=== PATIENT | male | born 1935 | race Caucasian/White ===

== ENCOUNTER 2018-06-08 09:35 | Emergency (ER) | payer OTHER, MEDICARE ==
--- NOTE | 2018-06-08 09:55 | ER Document Report ---
HPI - HPI Pain Level: 1 Notes: Patient is an 89-year-old male with a history of COPD and cardiac history who presents to the emergency department complaining of dry nonproductive cough that began yesterday morning. Patient states that his was diagnosed with pneumonia recently and he was sent by the [place] [facility] for a chest x-ray. Patient states that he also began having nasal congestion and discharge at that time. He is eating and drinking without difficulty. He is urinating normally and having normal bowel movements. Denies any headache, fever, neck pain, URI, sore throat, chest pain, palpitations, syncope, shortness of breath, wheeze, dyspnea, abdominal pain, nausea/vomiting/diarrhea, urinary retention, dysuria, hematuria, or rash. - ROS Systems Reviewed and Negative: Yes All other systems reviewed and negative - DERM Skin Color: Normal Past Medical History - Social History Smoking Status: Former Smoker Family History: Reviewed & Not Pertinent Patient has suicidal ideation: No Patient has homicidal ideation: No Renal/ Medical History: Denies: Hx Peritoneal Dialysis Vertical Provider Document - CONSTITUTIONAL Agree With Documented VS: Yes Notes: PHYSICAL EXAMINATION: GENERAL: Well-appearing, well-nourished and in no acute distress. HEAD: Atraumatic, normocephalic. EYES: Pupils equal round and reactive to light, extraocular movements intact, sclera anicteric, conjunctiva are normal. ENT: Nares patent and with clear discharge. oropharynx clear without exudates. No tonsilar hypertrophy or erythema. Moist mucous membranes. NECK: Normal range of motion, supple without lymphadenopathy LUNGS: Breath sounds clear to auscultation bilaterally and equal. No wheezes rales or rhonchi. HEART: Regular rate and rhythm without murmurs, rubs, gallops. ABDOMEN: Soft, nontender, nondistended abdomen. No guarding, no rebound. No masses appreciated. Normal bowel sounds present. No CVA tenderness bilaterally. Musculoskeletal: FROM to passive/active. Strength 5+/5. Jakub neg. No asymmetry to LE's. Extremities: No cyanosis, clubbing, or edema b/l. Peripheral pulses 2+. Capillary refill less than 3 seconds. NEUROLOGICAL: Normal speech, normal gait. PSYCH: Normal mood, normal affect. SKIN: Warm, Dry, normal turgor, no rashes or lesions noted. - INFECTION CONTROL TRAVEL OUTSIDE OF THE [place] IN LAST 30 DAYS: No Course - Re-evaluation Re-evalutation: 06/08/18 Patient is an afebrile, well-hydrated, 89-year-old male who presents to the emergency department with an acute URI, suspect viral. Vitals are acceptable without significant tachycardia, tachypnea, or hypoxia. PE is otherwise unremarkable. Patient is nontoxic-appearing and is tolerating p.o. without difficulty. Chest x-ray unremarkable. No further labs or imaging warranted. Patient does not have any chest pain, shortness of breath, or dyspnea on exertion. He was at his [place] [facility] provider today who wanted him here for an x- ray for possible pneumonia. Based on patient's symptomatology and clinical exam I have low suspicion for any ACS, PE, pneumothorax, pericarditis, dissection, respiratory compromise, severe dehydration, sepsis, meningitis, or other systemic emergent condition at this time. Patient is aware that his condition can change from initial presentation and he needs to monitor symptoms closely and seek medical attention for any acute changes. Recommend conservative measures for symptoms. Recheck with your PCM in 2-3 days. Return to the ED with any worsening/concerning symptoms otherwise as reviewed in discharge. Patient is in agreement. - Vital Signs Vital signs: Temp Pulse Resp BP Pulse Ox 97.8 F 69 16 124/69 96 06/08/18 09:46 06/08/18 09:46 06/08/18 09:46 06/08/18 09:46 06/08/18 09:46 Discharge - Discharge Clinical Impression: Acute URI Condition: Stable Disposition: HOME, SELF-CARE Instructions: Upper Respiratory Illness ([facility]) Additional Instructions: Maintain adequate fluid intake Take meds as directed tylenol/ibuprofen as needed over the counter cold medication as needed for symptoms Humidified air may help Wash your hands regularly Wear a mask when coughing F/u: with your PCM in 2-3 days for a recheck Return to the ED with any fever, worsening pain, chest pain, palpitations, syncope, worsening HALE, neck pain/stiffness, shortness of breath, wheezing, drooling, trouble swallowing/breathing, abdominal pain, n/v/d, rash, or worsening/concerning symptoms otherwise. Prescriptions: Benzonatate [Tessalon Perle 100 mg Capsule] 100 mg PO Q8HP PRN #15 cap PRN Reason: Referrals: [facility] [Provider Group] - Follow up as needed
--- NOTE | 2018-06-08 10:47 | RADIOLOGY REPORT (SQ) ---
EXAM DESCRIPTION: CHEST 2 VIEWS COMPLETED DATE/TIME: 06/08/2018 10:26 am REASON FOR STUDY: cough COMPARISON: None. EXAM PARAMETERS: NUMBER OF VIEWS: two views TECHNIQUE: Digital Frontal and Lateral radiographic views of the chest acquired. RADIATION DOSE: NA LIMITATIONS: none FINDINGS: LUNGS AND PLEURA: No opacities, masses or pneumothorax. No pleural effusion. MEDIASTINUM AND HILAR STRUCTURES: No masses or contour abnormalities. HEART AND VASCULAR STRUCTURES: Heart normal size. No evidence for failure. BONES: No acute findings. HARDWARE: None in the chest. OTHER: No other significant finding. IMPRESSION: NO ACUTE RADIOGRAPHIC FINDING IN THE CHEST. TECHNICAL DOCUMENTATION: JOB ID: [id number] [employer]- All Rights Reserved Reading location - IP/workstation name: [email or web address]
[2018-06-08 11:12] VITALS: BP 112/74
== END 2018-06-08 11:12 | disposition home or self-care (01) ==
LOC: EDBD → ER 09:35
DX: J06.9 Acute upper respiratory infection, unspecified (principal); R05 Cough; R09.81 Nasal congestion; R09.89 Other specified symptoms and signs involving the circulatory and respiratory systems; Z87.891 Personal history of nicotine dependence
CPT/HCPCS: 71046; 99283

== ENCOUNTER 2018-09-05 10:21 | Emergency (ER) | payer OTHER, MEDICARE ==
[2018-09-05] MEDS ORDERED: MORPHINE SULFATE 10 MG/ML INJ IV ONE (11:27)
--- NOTE | 2018-09-05 11:27 | RADIOLOGY REPORT (SQ) ---
EXAM DESCRIPTION: KNEE RIGHT 2 VIEWS COMPLETED DATE/TIME: 09/05/2018 11:15 am REASON FOR STUDY: bed 17 r knee s/p fall +swelling +painful COMPARISON: None. NUMBER OF VIEWS: Four views. TECHNIQUE: AP, lateral, and both oblique radiographic images acquired of the right knee. LIMITATIONS: None. FINDINGS: MINERALIZATION: Normal. BONES: No acute fracture or dislocation. No worrisome bone lesions. JOINT: No effusion. SOFT TISSUES: Extensive soft tissue swelling over the anterior knee. OTHER: No other significant finding. IMPRESSION: No fracture or dislocation of the right knee. Extensive soft tissue swelling over the a nterior knee. TECHNICAL DOCUMENTATION: JOB ID: [id number] [employer]- All Rights Reserved Reading location - IP/workstation name: [email or web address]
--- NOTE | 2018-09-05 11:34 | ER Document Report ---
ED Extremity Problem, Lower - General Chief Complaint: Knee Injury Stated Complaint: LEG PAIN Time Seen by Provider: 09/05/18 10:58 Primary Care Provider: BARBIE GROSS DO [Primary Care Provider] - Follow up as needed TRAVEL OUTSIDE OF THE [place] IN LAST 30 DAYS: No - HPI Notes: Patient is a 82-year-old male that presents to the emergency department for chief complaint of right knee pain. Patient states he was walking to the bathroom and his right knee gave out on him. He fell forward landing on his right knee directly. He denies head injury or loss of consciousness. He states the knee has become increasingly swollen and painful since the fall. The pain is worse with any kind of movement. He states that he is now having some numbness in his right foot. Patient is on Plavix for history of coronary stenting x3. He denies surgery on this knee in the past. He denies other injuries during the fall. He did receive fentanyl by EMS prior to arrival and reports no improvement of his pain. Past Medical History: CAD Past Surgical History: Coronary stent x3 Social History: Denies drugs alcohol and tobacco, lives independently Family History: Reviewed and noncontributory for presenting illness Allergies: Reviewed, see documented allergy list. REVIEW OF SYSTEMS: CONSTITUTIONAL : No fever No chills No diaphoresis No recent illness EENT: No vision changes No congestion No sore throat CARDIOVASCULAR: No chest pain No palpitations RESPIRATORY: No shortness of breath No cough No difficulty breathing GASTROINTESTINAL: No abdominal pain No nausea No vomiting No diarrhea GENITOURINARY: No dysuria No hematuria No difficulty urinating MUSCULOSKELETAL: No back pain knee pain No arm pain SKIN: No rashes lesions LYMPHATIC: No swollen, enlarged glands. NEUROLOGICAL: No lightheadedness No headache No weakness No paresthesias PSYCHIATRIC: No anxiety No depression PHYSICAL EXAMINATION: Vital signs reviewed, nursing noted reviewed. GENERAL: Well-appearing, well-nourished and in no acute distress. HEAD: Atraumatic, normocephalic. EYES: Eyes appear normal, extraocular movements intact, sclera anicteric, co njunctiva are normal. ENT: nares patent, oropharynx clear without exudates. Moist mucous membranes. NECK: Normal range of motion, supple without lymphadenopathy LUNGS: Breath sounds clear to auscultation bilaterally and equal. No wheezes rales or rhonchi. HEART: Regular rate and rhythm without murmurs, +2/4 bilateral DP and PT pulses symmetric ABDOMEN: Soft, nontender, normoactive bowel sounds. No rebound, guarding, or rigidity. No masses appreciated. EXTREMITIES: Large amount of edema to right knee and distal right thigh, decreased range of motion of right knee in extension and flexion. Ecchymosis and abrasion to anterior right knee. Pelvis stable. Normal right ankle exam. No right hip tenderness. NEUROLOGICAL: Subjective paresthesias distal to right knee, moves all extremit ies spontaneously Motor intact on exam. PSYCH: Normal mood, normal affect. SKIN: Warm, Dry, normal turgor, right knee abrasion without bleeding - Related Data Allergies/Adverse Reactions: aspirin Allergy (Verified 06/22/18 11:52) codeine Allergy (Verified 06/22/18 11:52) iodine Allergy (Verified 06/22/18 11:52) Penicillins Allergy (Verified 06/22/18 11:52) Sulfa (Sulfonamide Antibiotics) Allergy (Verified 06/22/18 11:52) Past Medical History - Social History Smoking Status: Unknown if Ever Smoked Family History: CAD, COPD, Reviewed & Not Pertinent Patient has suicidal ideation: No Patient has homicidal ideation: No - Past Medical History Cardiac Medical History: Reports: Hx Coronary Artery Disease, Hx Heart Attack - x2, Hx Hypercholesterolemia, Hx Hypertension Pulmonary Medical History: Reports: Hx Bronchitis, Hx COPD, Hx Pneumonia Neurological Medical History: Reports: Hx Cerebrovascular Accident - tia Endocrine Medical History: Reports: Hx Diabetes Mellitus Type 2, Hx Hypothyroidism Renal/ Medical History: Denies: Hx Peritoneal Dialysis GI Medical History: Reports: Hx Diverticulitis, Hx Gastritis, Hx Gastroesophageal Reflux Disease, Hx Colonoscopy, Hx Endoscopy Musculoskeletal Medical History: Reports Hx Arthritis Psychiatric Medical History: Reports: Hx Depression Past Surgical History: Reports: Hx Adenoidectomy, Hx Appendectomy, Hx Cardiac Catheterization, Hx Cardiac Surgery - stent, Hx Coronary Stent - 2, Hx Genitourinary Surgery - circumcision, Hx Orthopedic Surgery - back, Hx Tonsillectomy, Other - cataracts Physical Exam - Vital signs Vitals: Temp Pulse Resp BP Pulse Ox 98.9 F 88 18 118/74 94 09/05/18 10:29 09/05/18 10:29 09/05/18 10:29 09/05/18 10:29 09/05/18 10:29 Course - Re-evaluation Re-evalutation: 09/05/18 11:34 Vitals reviewed. Nursing notes reviewed. Patient was still having significant pain after fentanyl and will be given morphine for further pain control. He has a large knee effusion on his right which is likely hemarthrosis from his Plavix. Patient is reporting subjective paresthesias in his distal extremity. He has normal pulses in his right foot and there is no compartment syndrome. Knee X-Ray 09/05/18 00:00 IMPRESSION: No fracture or dislocation of the right knee. Extensive soft tissue swelling over the anterior knee. 09/05/18 11:43 Patient's x-ray showed no bony injury. He does have a significant amount of soft tissue swelling and knee effusion. I discussed his images with Dr. Landon who reviewed his films. He feels the numbness is a neuropraxia and does not recommend any further CT imaging. Patient will be placed in knee immobilizer and will follow with Dr. Landon in the out patient setting. He was given crutches to assist with mobilization. He will be given pain medication. He was instructed on ice and elevation. He will return for new or worsening symptoms. He is stable at discharge. - Vital Signs Vital signs: Temp Pulse Resp BP Pulse Ox 98.9 F 88 18 118/74 94 09/05/18 10:29 09/05/18 10:29 09/05/18 10:29 09/05/18 10:29 09/05/18 10:29 Procedures - Immobilization Right Knee Time completed: 11:44 Pre-Proc Neuro Vasc Exam: Other - Right lower extremity paresthesias Immobilizer type: Knee immobilizer Performed by: porter marina - Discharge Clinical Impression: Effusion, right knee Neuropraxia of left lower extremity Qualifiers: Encounter type: initial encounter Qualified Code(s): S84.92XA - Injury of unspecified nerve at lower leg level, left leg, initial encounter Contusion of right knee Qualifiers: Encounter type: initial encounter Qualified Code(s): S80.01XA - Contusion of right knee, initial encounter Condition: Stable Disposition: HOME, SELF-CARE Instructions: Knee Immobilizing Splint ([facility]), Ice & Elevation ([facility]), Use of Crutches ([facility]), Knee Effusion ([facility]) Additional Instructions: Please return to the emergency department if you have any worsening, or concern of your symptoms. Please return to the emergency department if you develop chest pain, difficulty breathing, severe abdominal pain, or ongoing vomiting. Please follow-up with your primary care physician in 2-3 days and any other recommended physicians. If prescribed, take all medications as directed. If you have any questions or concerns do not hesitate to return the emergency department for evaluation. Keep your knee elevated above the level of your heart as often as possible to decrease swelling. Apply ice to your knee for 15 to 20 minutes at a time 2-[address] Landon for follow-up appointment Prescriptions: Oxycodone HCl/Acetaminophen [Percocet 5-325 mg Tablet] 1 tab PO Q6 PRN #15 tab PRN Reason: Pain Scale Of 5 Referrals: BARBIE GROSS DO [Primary Care Provider] - Follow up as needed MICHAEL LANDON MD [ACTIVE STAFF] - Follow up in 3-5 days
[2018-09-05 13:12] VITALS: BP 100/59
== END 2018-09-05 13:12 | disposition home or self-care (01) ==
LOC: ER 10:21
DX: S84.92XA Injury of unspecified nerve at lower leg level, left leg, initial encounter (principal); M25.461 Effusion, right knee; M25.561 Pain in right knee; M79.89 Other specified soft tissue disorders; R20.0 Anesthesia of skin; W19.XXXA Unspecified fall, initial encounter; Z79.02 Long term (current) use of antithrombotics/antiplatelets; I25.10 Atherosclerotic heart disease of native coronary artery without angina pectoris; I10 Essential (primary) hypertension; J44.9 Chronic obstructive pulmonary disease, unspecified; E11.9 Type 2 diabetes mellitus without complications
CPT/HCPCS: 99283; 96374; 73560; L1830; J2270